=== PATIENT | male | born 1950 | race African-American/Black ===

== ENCOUNTER 2019-10-14 10:24 | Emergency (ER) | payer MEDICARE, MEDICAID ==
[~2019-10-14] VITALS: Ht 167.6 cm; Wt 69.0 kg
[~2019-10-14 10:24] MED LIST: ASPI-1158 PO; BETH50TA PO; CYCL30DR OP; EPO10 IJ; FINA5TAB3 PO; METO-396 PO; PANT40TA4 PO; RMST15 PO; TAMS-11 PO
[2019-10-14] MEDS ORDERED: KETOROLAC 30MG/ML VIAL IV STA (11:07)
[2019-10-14] MEDS ORDERED: ONDANSETRON HCL 4MG/2ML INJ IV STA (11:07)
[2019-10-14] MEDS ORDERED: MORPHINE SULFATE 4 MG/ML CPJ (NOT FOR IM USE) IV STA (11:07)
[2019-10-14] MEDS ORDERED: PROPOFOL 200MG/20ML VIAL IV ONE (11:30)
[2019-10-14 11:32] LABS: BASOPHILS % 0.6 % (0.0-2.0); EOSINOPHILS % 4.7 % (0.0-5.0); HEMATOCRIT. 35.1 % (42.0-52.0); HEMOGLOBIN. 11.9 g/dL (14.0-18.0); MEAN CORPUSCULAR VOLUME 108.5 fL (80.0-94.0); MEAN PLATELET VOLUME 8.4 fl (7.4-10.4); MONOCYTES % 7.6 % (2.0-8.0); NEUTROPHILS % 70.1 % (40.0-76.0); PLATELET 116 x1000/uL (130-400); RED BLOOD CELL COUNT 3.23 mill/uL (4.7-6.1); RED CELL DISTRIBUTION WIDTH 16.4 % (11.6-14.6)
[2019-10-14] MEDS ORDERED: MORPHINE SULFATE 4 MG/ML CPJ (NOT FOR IM USE) IV ONE (13:45)
[2019-10-14 14:47] VITALS: BP 116/62
== END 2019-10-14 15:10 | disposition home or self-care (01) ==
LOC: ER 10:24
DX: S73.005A Unspecified dislocation of left hip, initial encounter (principal); W18.39XA Other fall on same level, initial encounter; Y93.89 Activity, other specified; Y92.89 Other specified places as the place of occurrence of the external cause; Y99.8 Other external cause status; E11.9 Type 2 diabetes mellitus without complications; I10 Essential (primary) hypertension; Z99.2 Dependence on renal dialysis; N18.6 End stage renal disease; Z96.649 Presence of unspecified artificial hip joint; Z79.82 Long term (current) use of aspirin; Z79.899 Other long term (current) drug therapy
CPT/HCPCS: 27250; 36415; 73502; 80048; 85025; 96374; 96375; 96376; 99284; J1885; J2270; J2405; J2704

== ENCOUNTER 2020-05-04 13:01 | Inpatient (IN) | payer MEDICARE, MEDICAID ==
[~2020-05-04] VITALS: Ht 175.3 cm; Wt 62.2 kg
[2020-05-04] MEDS ORDERED: ONDANSETRON HCL 4MG/2ML INJ IV STA (15:07)
[2020-05-04 15:45] LABS: BASOPHILS % 0.2 % (0.0-2.0); EOSINOPHILS % 1.9 % (0.0-5.0); HEMATOCRIT. 37.2 % (42.0-52.0); HEMOGLOBIN. 12.7 g/dL (14.0-18.0); LYMPHOCYTES % 20.4 % (20.0-50.0); MEAN CORPUSCULAR HEMOGLOBIN 34.8 pg (28.0-32.0); MEAN CORPUSCULAR VOLUME 102.1 fL (80.0-94.0); MEAN PLATELET VOLUME 9.9 fl (7.4-10.4); MONOCYTES % 5.8 % (2.0-8.0); NEUTROPHILS % 71.7 % (40.0-76.0); PLATELET 61 x1000/uL (130-400); RED BLOOD CELL COUNT 3.64 mill/uL (4.7-6.1); RED CELL DISTRIBUTION WIDTH 16.3 % (11.6-14.6)
[2020-05-04 15:51] LABS: CHLORIDE 101 mEq/L (98-107)
[2020-05-04] MEDS ORDERED: PANTOPRAZOLE SODIUM 40 MG/VIAL IV ONE (16:15)
[2020-05-04] MEDS ORDERED: DIPHENHYDRAMINE 50MG/ML VIAL IV PRN (17:45)
[2020-05-04] MEDS ORDERED: ONDANSETRON HCL 4MG/2ML INJ IV PRN (17:45)
[2020-05-04] MEDS ORDERED: IPRATROPIUM/ALBUTEROL 0.5-3(2.5)MG/3ML NEB HHN PRN (17:45)
[2020-05-04] MEDS ORDERED: CLONIDINE 0.1MG TABLET PO PRN (17:45)
[2020-05-04] MEDS ORDERED: ACETAMINOPHEN 325MG TABLET PO PRN (17:45)
[2020-05-04] MEDS ORDERED: PANTOPRAZOLE SODIUM 40 MG/VIAL IV SCH (19:00)
[2020-05-04 21:25] VITALS: BP 165/82
[2020-05-04] MEDS ORDERED: CALC667C MT (22:11)
[2020-05-04] MEDS ORDERED: SEVE800T8 MT (22:11)
[2020-05-04] MEDS ORDERED: HYDR-3280 PO (22:12)
[2020-05-05] VITALS: BP 133/55
[2020-05-05 04:00] VITALS: BP 149/42
[2020-05-05 07:09] LABS: BASOPHILS % 0.2 % (0.0-2.0); EOSINOPHILS % 4.2 % (0.0-5.0); HEMATOCRIT. 33.9 % (42.0-52.0); HEMOGLOBIN. 11.4 g/dL (14.0-18.0); MEAN CORPUSCULAR HEMOGLOBIN 34.2 pg (28.0-32.0); MEAN CORPUSCULAR VOLUME 101.9 fL (80.0-94.0); MEAN PLATELET VOLUME 10.4 fl (7.4-10.4); MONOCYTES % 7.8 % (2.0-8.0); NEUTROPHILS % 64.8 % (40.0-76.0); PLATELET 58 x1000/uL (130-400); RED BLOOD CELL COUNT 3.33 mill/uL (4.7-6.1); RED CELL DISTRIBUTION WIDTH 16.1 % (11.6-14.6)
[2020-05-05 07:35] LABS: CHLORIDE 102 mEq/L (98-107)
[2020-05-05 07:43] LABS: HDL CHOLESTEROL 49 mg/dL (40-59); LDL CHOLESTEROL 46 mg/dL (5-100)
[2020-05-05 08:00] VITALS: BP 120/51
[2020-05-05] MEDS: PANTOPRAZOLE SODIUM 40 MG/VIAL IV SCH (10:06)
[2020-05-05] MEDS ORDERED: HYDROCODONE/ACETAMINOPHEN 5/325MG TABLET PO PRN (11:15)
[2020-05-05 12:00] VITALS: BP 150/48
[2020-05-05] MEDS: AMLODIPINE 5MG TABLET PO SCH (12:45)
[2020-05-05] MEDS: SEVELAMER CARBONATE 800 MG TABLET PO SCH ×2 (13:55→19:32)
[2020-05-05 14:34] LABS: T4 FREE 1.02 ng/dL (0.76-1.46)
[2020-05-05 16:00] VITALS: BP 127/41
[2020-05-05 18:51] LABS: FOLIC ACID (FOLATE) SERUM 6.9 ng/mL (>5.38)
[2020-05-05 20:09] VITALS: BP 127/69
[2020-05-06] VITALS (7 sets, daily range): BP systolic 96–150; BP diastolic 38–62
[2020-05-06] MEDS: ZOLPIDEM TARTRATE 5MG TABLET PO PRN ×2 (00:38→22:23)
[2020-05-06] MEDS: SEVELAMER CARBONATE 800 MG TABLET PO SCH ×3 (08:34→17:14)
[2020-05-06] MEDS: TAMSULOSIN HCL 0.4MG SR CAPSULE PO SCH (08:35)
[2020-05-06] MEDS: PANTOPRAZOLE SODIUM 40 MG/VIAL IV SCH (08:36)
[2020-05-06] MEDS: AMLODIPINE 5MG TABLET PO SCH (08:37)
[2020-05-06 09:53] LABS: BASOPHILS % 0.6 % (0.0-2.0); EOSINOPHILS % 4.8 % (0.0-5.0); HEMATOCRIT. 36.7 % (42.0-52.0); HEMOGLOBIN. 12.4 g/dL (14.0-18.0); LYMPHOCYTES % 20.1 % (20.0-50.0); MEAN CORPUSCULAR HEMOGLOBIN 34.3 pg (28.0-32.0); MEAN CORPUSCULAR VOLUME 102.1 fL (80.0-94.0); MEAN PLATELET VOLUME 9.7 fl (7.4-10.4); MONOCYTES % 7.7 % (2.0-8.0); NEUTROPHILS % 66.8 % (40.0-76.0); PLATELET 73 x1000/uL (130-400); RED CELL DISTRIBUTION WIDTH 16.7 % (11.6-14.6)
[2020-05-06] MEDS ORDERED: POTASSIUM CHLORIDE 20MEQ/PACKET PO SCH (13:00)
[2020-05-06] MEDS: DOCUSATE SODIUM 250MG CAPSULE PO SCH (17:14)
[2020-05-07 04:42] VITALS: BP 140/55
[2020-05-07 06:19] LABS: BASOPHILS % 0.6 % (0.0-2.0); EOSINOPHILS % 4.9 % (0.0-5.0); HEMATOCRIT. 37.9 % (42.0-52.0); HEMOGLOBIN. 12.7 g/dL (14.0-18.0); LYMPHOCYTES % 28.8 % (20.0-50.0); MEAN CORPUSCULAR HEMOGLOBIN 34.2 pg (28.0-32.0); MEAN CORPUSCULAR VOLUME 102.2 fL (80.0-94.0); MEAN PLATELET VOLUME 10.5 fl (7.4-10.4); MONOCYTES % 9.9 % (2.0-8.0); NEUTROPHILS % 55.8 % (40.0-76.0); PLATELET 77 x1000/uL (130-400); RED CELL DISTRIBUTION WIDTH 16.2 % (11.6-14.6)
[2020-05-07] MEDS ORDERED: LEVOTHYROXINE SODIUM 50MCG TABLET PO SCH (07:20)
[2020-05-07 08:11] VITALS: BP 129/58
[2020-05-07] MEDS: PANTOPRAZOLE SODIUM 40 MG/VIAL IV SCH (08:30)
[2020-05-07] MEDS: DOCUSATE SODIUM 250MG CAPSULE PO SCH ×2 (08:31→17:49)
[2020-05-07] MEDS: TAMSULOSIN HCL 0.4MG SR CAPSULE PO SCH (08:31)
[2020-05-07] MEDS: SEVELAMER CARBONATE 800 MG TABLET PO SCH ×3 (08:31→17:48)
[2020-05-07] MEDS: AMLODIPINE 5MG TABLET PO SCH (08:31)
[2020-05-07 12:12] VITALS: BP 130/53
[2020-05-07] MEDS ORDERED: LEVO25TA7 PO (13:15)
[2020-05-07] MEDS ORDERED: AMLO5TAB88 PO (13:15)
[2020-05-07] MEDS ORDERED: DOCUSATE SODIUM 250MG CAPSULE PO SCH (14:00)
[2020-05-07 15:55] VITALS: BP 137/53
[2020-05-07 18:57] VITALS: BP 133/41
[2020-05-07 20:20] VITALS: BP 143/62
[2020-05-08] MEDS ORDERED: LEVOTHYROXINE SODIUM 25MCG TABLET PO SCH (07:20)
[2020-05-08] MEDS ORDERED: DOCUSATE SODIUM 250MG CAPSULE PO PRN (09:00)
== END 2020-05-07 20:15 | disposition home or self-care (01) | DRG 242 ==
LOC: ER 13:01 → 6WST 16:27 → EDBEDREQ 16:31 → ENRESERV 19:59 → 6WST 21:53
PROVIDERS: ADMIT Internal Medicine; ATTEND Internal Medicine
PROC: 5A1D70Z Performance of Urinary Filtration, Intermittent, Less than 6 Hours Per Day (ICD-10-PCS; principal; 2020-05-05)
DX: K22.6 Gastro-esophageal laceration-hemorrhage syndrome (principal); N18.6 End stage renal disease; D69.6 Thrombocytopenia, unspecified; E11.22 Type 2 diabetes mellitus with diabetic chronic kidney disease; I12.0 Hypertensive chronic kidney disease with stage 5 chronic kidney disease or end stage renal disease; E03.9 Hypothyroidism, unspecified; E78.5 Hyperlipidemia, unspecified; I44.0 Atrioventricular block, first degree; N40.0 Benign prostatic hyperplasia without lower urinary tract symptoms; D64.9 Anemia, unspecified; G89.29 Other chronic pain; K21.9 Gastro-esophageal reflux disease without esophagitis; W06.XXXA Fall from bed, initial encounter; Y83.0 Surgical operation with transplant of whole organ as the cause of abnormal reaction of the patient, or of later complication, without mention of misadventure at the time of the procedure; Z96.643 Presence of artificial hip joint, bilateral; Z99.2 Dependence on renal dialysis; Z94.0 Kidney transplant status; Y93.89 Activity, other specified; Y99.8 Other external cause status; Y92.89 Other specified places as the place of occurrence of the external cause
CPT/HCPCS: 36415; 71045; 80048; 80053; 80061; 82607; 82746; 84439; 84443; 84481; 84484; 85025; 93005; 93970; 99291; C9113; J2405

== ENCOUNTER 2020-07-21 05:07 | Emergency (ER) | payer MEDICARE, MEDICAID ==
[~2020-07-21] VITALS: Ht 177.8 cm; Wt 64.0 kg
[~2020-07-21 05:07] MED LIST changes: +AMLO5TAB88 PO; -ASPI-1158 PO; -BETH50TA PO; +CALC667C MT; -CYCL30DR OP; -EPO10 IJ; -FINA5TAB3 PO; +HYDR-3280 PO; +LEVO25TA7 PO; -METO-396 PO; -PANT40TA4 PO; -RMST15 PO; +SEVE800T8 MT
[2020-07-21 05:51] VITALS: BP 144/66
== END 2020-07-21 07:15 | disposition home or self-care (01) ==
LOC: ER 05:07
DX: M79.662 Pain in left lower leg (principal); G89.29 Other chronic pain; I12.0 Hypertensive chronic kidney disease with stage 5 chronic kidney disease or end stage renal disease; N18.6 End stage renal disease; Z99.2 Dependence on renal dialysis
CPT/HCPCS: 99283

== ENCOUNTER 2022-07-04 11:36 | Emergency (ER) | payer MEDICARE, MEDICAID ==
[~2022-07-04] VITALS: Ht 165.1 cm; Wt 63.0 kg
[~2022-07-04 11:36] MED LIST changes: -HYDR-3280 PO; +HYDR-4350 PO
[2022-07-04 11:40] VITALS: BP 0/0
== END 2022-07-04 11:42 ==
LOC: ER 11:36
DX: I46.9 Cardiac arrest, cause unspecified (principal); E11.9 Type 2 diabetes mellitus without complications; I10 Essential (primary) hypertension
CPT/HCPCS: 31500; 92950; 99285